=== PATIENT | male | born 1965 | race African-American/Black ===

== ENCOUNTER 2017-09-24 07:53 | Emergency (ER) | payer MEDICAID, OTHER ==
[~2017-09-24] VITALS: Ht 182.9 cm; Wt 61.4 kg
[2017-09-24 08:07] LABS: GLUCOSE,POINT OF CARE 109 MG/DL (70-110)
[2017-09-24 08:09] VITALS: BP 151/93
[2017-09-24] MEDS ORDERED: DiphenhydrAMINE HCL 25 MG CAPSULE PO ONE (08:30)
[2017-09-24] MEDS ORDERED: IBUPROFEN 600 MG TABLET PO ONE (08:30)
[2017-09-24] MEDS ORDERED: TRIAMCINOLONE 0.1% 15 GM CREAM TP ONE (08:30)
== END 2017-09-24 09:07 | disposition home or self-care (01) ==
LOC: EMS 07:54
DX: L30.9 Dermatitis, unspecified (principal); M79.672 Pain in left foot; M79.671 Pain in right foot; F17.210 Nicotine dependence, cigarettes, uncomplicated; F12.90 Cannabis use, unspecified, uncomplicated
CPT/HCPCS: 82962; 99284; 99406

== ENCOUNTER → 2021-04-09 | Emergency (ER) | payer OTHER ==
[~2021-04-09] VITALS: Ht 175.3 cm; Wt 57.3 kg
[~2021-04-09] MED LIST: DiphenhydrAMINE HCL 50 MG CAPSULE PO ONE; PredniSONE 20 MG TABLET PO ONE
[2021-04-09 20:09] VITALS: BP 128/78
== END | disposition home or self-care (01) ==
LOC: EMS 19:35
DX: L50.9 Urticaria, unspecified (principal); F17.210 Nicotine dependence, cigarettes, uncomplicated; F12.90 Cannabis use, unspecified, uncomplicated
CPT/HCPCS: 99283; J7512